=== PATIENT | male | born 1945 | race Asian ===

== ENCOUNTER → 2017-06-07 | Outpatient (CLI) | payer MEDICARE, OTHER | END | disposition home or self-care (01) | LOC: RADPV 07:55 | PROVIDERS: ATTEND Family Medicine | DX: M25.78 Osteophyte, vertebrae (principal); M47.814 Spondylosis without myelopathy or radiculopathy, thoracic region; M19.022 Primary osteoarthritis, left elbow; M19.021 Primary osteoarthritis, right elbow; M25.521 Pain in right elbow; M17.0 Bilateral primary osteoarthritis of knee; M25.562 Pain in left knee; M25.561 Pain in right knee; M16.0 Bilateral primary osteoarthritis of hip; M25.552 Pain in left hip; M25.551 Pain in right hip; M25.512 Pain in left shoulder; M25.511 Pain in right shoulder; I70.0 Atherosclerosis of aorta | CPT/HCPCS: 72070; 72100; 73521 ==